=== PATIENT | male | born 1955 | race Caucasian/White ===

== ENCOUNTER 2016-07-27 11:38 | Emergency (ER) | payer BC ==
[~2016-07-27] VITALS: Ht 185.4 cm; Wt 118.5 kg
[2016-07-27 12:38] LABS: HEMATOCRIT 44.8 % (38.0-50.0); MCH 32.2 PG (29.0-34.0); MCHC 35.3 G/DL (30.0-36.0); MCV 91.2 FL (86-99); MEAN PLAT.VOLUME 11.2 uM^3 (9.0-12.4); PLATELET COUNT 256 K/uL (156-360); RBC DIS.WIDTH-CV 11.9 % (11.8-14.6); RBC DIS.WIDTH-SD 39.7 % (39-53); RED BLOOD COUNT 4.91 M/uL (4.00-5.50); WHITE BLOOD COUNT 10.1 K/uL (4.1-10.2)
[2016-07-27 12:49] LABS: CHLORIDE 104 mEq/L (99-109); POTASSIUM 4.4 mEq/L (3.7-5.4); SODIUM 138 mEq/L (136-147)
[2016-07-27 12:50] LABS: AMYLASE 64 IU/L (1-118)
[2016-07-27 12:52] LABS: GLUCOSE 212 mg/dL (70-99)
[2016-07-27 12:53] LABS: ANION GAP 12 MEQ/L (2-14)
[2016-07-27 12:55] LABS: ALKALINE PHOSPHATASE 33 IU/L (3-129); GFR ESTIMATE (CALCULATED) > 59 mL/min/
[2016-07-27 12:56] LABS: UREA NITROGEN (BUN) 17 mg/dL (9-23)
[2016-07-27 12:59] LABS: LIPASE 41 U/L (1.0-51.0)
[2016-07-27 13:31] LABS: ADD MIUA? YES; BILIRUBIN NEGATIVE; BLOOD LARGE; COLOR YELLOW ((YELLOW)); GLUCOSE (STRIP) 50; KETONES NEGATIVE; LEUKOCYTES NEGATIVE; NITRITE NEGATIVE; PROTEIN (STRIP) NEGATIVE; SPECIFIC GRAVITY 1.014 (1.000-1.030); UROBILINOGEN 0.2 MG/DL (0.2-1.0)
[2016-07-27 13:34] LABS: BACTERIA RARE /HPF; EPITHELIAL CELLS RARE /HPF; HYALINE CASTS 0-5 /LPF; MUCUS TRACE /LPF; RED BLOOD CELLS TNTC /HPF (0-5)
[2016-07-27] MEDS ORDERED: ULTRAM50 MG PO (14:15)
[2016-07-27 14:21] VITALS: BP 135/65
[2016-07-28] MEDS ORDERED: PERCOCET 5/31 TABLET PO (14:26)
[2016-07-28] MEDS ORDERED: ZOFRAN ODT8 MG PO (14:26)
== END 2016-07-27 14:22 | disposition home or self-care (01) ==
LOC: EME 11:38
PROVIDERS: Nurse Practitioner Family
DX: R10.31 Right lower quadrant pain (principal); R31.9 Hematuria, unspecified; Z87.442 Personal history of urinary calculi; E11.9 Type 2 diabetes mellitus without complications
CPT/HCPCS: 74177; 80053; 81003; 82150; 83690; 85027; 99281; 99284; J7030

== ENCOUNTER 2016-07-28 10:01 | Emergency (ER) | payer BC ==
[~2016-07-28] VITALS: Ht 185.4 cm; Wt 1118.0 kg
[~2016-07-28 10:01] MED LIST: ULTRAM50 MG PO
[2016-07-28 10:44] LABS: HEMATOCRIT 43.3 % (38.0-50.0); MCH 32.2 PG (29.0-34.0); MCHC 35.3 G/DL (30.0-36.0); MCV 91.2 FL (86-99); MEAN PLAT.VOLUME 11.4 uM^3 (9.0-12.4); PLATELET COUNT 259 K/uL (156-360); RBC DIS.WIDTH-CV 11.9 % (11.8-14.6); RBC DIS.WIDTH-SD 39.7 % (39-53); RED BLOOD COUNT 4.75 M/uL (4.00-5.50); WHITE BLOOD COUNT 8.3 K/uL (4.1-10.2)
[2016-07-28 10:54] LABS: CHLORIDE 107 mEq/L (99-109); POTASSIUM 4.4 mEq/L (3.7-5.4); SODIUM 139 mEq/L (136-147)
[2016-07-28 10:56] LABS: GLUCOSE 254 mg/dL (70-99)
[2016-07-28 10:58] LABS: ANION GAP 10 MEQ/L (2-14)
[2016-07-28 10:59] LABS: TOTAL BILIRUBIN 0.7 mg/dL (0.0-1.0)
[2016-07-28 11:00] LABS: ALKALINE PHOSPHATASE 33 IU/L (3-129); GFR ESTIMATE (CALCULATED) 51 mL/min/
[2016-07-28 11:01] LABS: UREA NITROGEN (BUN) 20 mg/dL (9-23)
[2016-07-28 11:36] LABS: ADD MIUA? YES; BILIRUBIN NEGATIVE; BLOOD MODERATE; COLOR YELLOW ((YELLOW)); GLUCOSE (STRIP) 150; KETONES NEGATIVE; LEUKOCYTES NEGATIVE; NITRITE NEGATIVE; PROTEIN (STRIP) NEGATIVE; SPECIFIC GRAVITY 1.019 (1.000-1.030); UROBILINOGEN 0.2 MG/DL (0.2-1.0)
[2016-07-28 11:42] LABS: BACTERIA NONE SEEN /HPF; EPITHELIAL CELLS RARE /HPF; MUCUS TRACE /LPF; RED BLOOD CELLS 20-30 /HPF (0-5); UCUL ADDED? NO; WHITE BLOOD CELLS 0-5 /HPF (0-5)
[2016-07-28] MEDS ORDERED: PERCOCET 5/31 TABLET PO (14:26)
[2016-07-28] MEDS ORDERED: ZOFRAN ODT8 MG PO (14:26)
[2016-07-28 14:32] VITALS: BP 133/70
== END 2016-07-28 14:34 | disposition home or self-care (01) ==
LOC: EME 10:01
DX: R31.9 Hematuria, unspecified (principal); R10.31 Right lower quadrant pain; E11.9 Type 2 diabetes mellitus without complications
CPT/HCPCS: 76770; 80053; 81003; 85027; 99281; 99284; J1885; J2405